=== PATIENT | male | born 1980 | race Caucasian/White ===

== ENCOUNTER 2019-10-12 07:33 | Emergency (ER) | payer OTHER ==
[~2019-10-12] VITALS: Ht 180.3 cm; Wt 134.1 kg
[2019-10-12] MEDS ORDERED: AMLO10TA7 PO (07:39)
[2019-10-12] MEDS: HYDROmorphone 2 MG/ML SYRINGE IVP ONE ×2 (09:17→12:02)
[2019-10-12] MEDS: KETOROLAC TROMETHAMINE 30 MG/ML VIAL IVP ONE (09:17)
[2019-10-12] MEDS: ONDANSETRON HCL 4 MG/2 ML VIAL IVP ONE (09:17)
[2019-10-12 09:30] LABS: BASOPHILS % (AUTO) 0.6 % (0.0-2.0); EOSINOPHILS % (AUTO) 0.6 % (1.0-6.0); HEMATOCRIT 44.7 % (41-53); HEMOGLOBIN 15.1 g/dL (13.5-17.5); LYMPHOCYTES # (AUTO) 1.4 K/uL (1.0-4.8); LYMPHOCYTES % (AUTO) 10.8 % (22.0-44.0); MEAN CORPUSCULAR HEMOGLOBIN 29.4 pg (26.0-34.0); MEAN CORPUSCULAR HGB CONC 33.7 G/dL (31.0-37.0); MEAN CORPUSCULAR VOLUME 87 fL (80-100); MONOCYTES # (AUTO) 0.7 K/uL (0.1-1.0); MONOCYTES % (AUTO) 5.3 % (2.0-9.0); NEUTROPHILS # (AUTO) 10.6 K/uL (1.8-7.7); NEUTROPHILS % (AUTO) 82.7 % (40.0-70.0); PLATELET COUNT (AUTO) 246 K/uL (150-450); RED BLOOD CELL COUNT(AUTO) 5.11 MIL/uL (4.50-5.90); RED CELL DISTRIBUTION WIDTH 16.7 % (11.5-14.5)
[2019-10-12 09:41] LABS: ANION GAP 10 mmol/L (8-16); CALCIUM, TOTAL 9.1 mg/dL (8.8-10.5); CARBON DIOXIDE 26 mmol/L (22-29); CHLORIDE 100 mmol/L (98-107); CREATININE 0.81 mg/dL (0.60-1.30); GLOMERULAR FILTR. RATE CALC > 60 mL/min (>60); GLUCOSE,RANDOM 108 mg/dL (70-110); POTASSIUM 4.1 mmol/L (3.5-5.1); SODIUM SERUM 136 mmol/L (136-145); UREA NITROGEN, BLOOD 16 mg/dL (7-18)
[2019-10-12 09:46] LABS: APPEARANCE,URINE CLEAR (CLEAR); BILIRUBIN,URINE NEGATIVE (NEGATIVE); GLUCOSE, URINE (UA) NEGATIVE (NEGATIVE); KETONES,URINE NEGATIVE (NEGATIVE); LEUKOCYTE ESTERASE ,URINE NEGATIVE (NEGATIVE); NITRATE,URINE NEGATIVE (NEGATIVE); OCCULT BLOOD,URINE SMALL (NEGATIVE); PH,URINE 6.5 (5.0-8.0); PROTEIN,URINE NEGATIVE (NEGATIVE); UROBILINOGEN,URINE 0.2 mg/dL (<=1.0)
[2019-10-12 09:57] LABS: BACTERIA,URINE None Seen /HPF (None Seen); WBC,URINE None Seen /HPF (0-5)
[2019-10-12 09:58] LABS: ALANINE AMINOTRANSFERASE 65 U/L (12-78); ALKALINE PHOSPHATASE 131 U/L (46-116); ASPARTATE AMINOTRANSFERASE 33 U/L (15-37); BILIRUBIN,TOTAL 0.5 mg/dL (0.1-1.0); LIPASE 139 U/L (73-393); TOTAL PROTEIN, SERUM 7.8 g/dL (6.4-8.2)
[2019-10-12] MEDS: AmLODIPine BESYLATE 5 MG TABLET PO ONE (13:00)
[2019-10-12 13:02] VITALS: BP 128/56
== END 2019-10-12 13:42 | disposition home or self-care (01) ==
LOC: EMS 07:39
DX: N20.0 Calculus of kidney (principal); I10 Essential (primary) hypertension
CPT/HCPCS: 36415; 71045; 74176; 80053; 81001; 83690; 84484; 85025; 93005; 96374; 96375; 96376; 99284; J1170; J1885; J2405

== ENCOUNTER 2019-10-21 04:45 | Emergency (ER) | payer OTHER ==
[~2019-10-21] VITALS: Ht 180.3 cm; Wt 134.1 kg
[~2019-10-21 04:45] MED LIST: AMLO10TA7 PO
[2019-10-21] MEDS ORDERED: AMLO2.5T4 PO (05:00)
[2019-10-21] MEDS ORDERED: HYDR-4061 PO (05:00)
[2019-10-21] MEDS ORDERED: PARO20TA24 PO (05:00)
[2019-10-21] MEDS ORDERED: IBUP-2310 PO (05:00)
[2019-10-21] MEDS ORDERED: ONDA-104 PO (05:00)
[2019-10-21] MEDS ORDERED: OMEP20 PO (05:00)
[2019-10-21] MEDS ORDERED: SODIUM CHLORIDE 0.9% 1,000 ML IV ONE (06:30)
[2019-10-21] MEDS ORDERED: KETOROLAC TROMETHAMINE 30 MG/ML VIAL IVP ONE (06:30)
[2019-10-21] MEDS ORDERED: ONDANSETRON HCL 4 MG/2 ML VIAL IVP ONE (06:30)
[2019-10-21 06:41] LABS: BASOPHILS % (AUTO) 0.7 % (0.0-2.0); EOSINOPHILS % (AUTO) 2.8 % (1.0-6.0); HEMATOCRIT 42.6 % (41-53); HEMOGLOBIN 14.7 g/dL (13.5-17.5); LYMPHOCYTES # (AUTO) 1.9 K/uL (1.0-4.8); LYMPHOCYTES % (AUTO) 16.4 % (22.0-44.0); MEAN CORPUSCULAR HGB CONC 34.4 G/dL (31.0-37.0); MEAN CORPUSCULAR VOLUME 87 fL (80-100); MONOCYTES # (AUTO) 0.9 K/uL (0.1-1.0); MONOCYTES % (AUTO) 7.6 % (2.0-9.0); NEUTROPHILS # (AUTO) 8.6 K/uL (1.8-7.7); NEUTROPHILS % (AUTO) 72.5 % (40.0-70.0); PLATELET COUNT (AUTO) 229 K/uL (150-450); RED BLOOD CELL COUNT(AUTO) 4.88 MIL/uL (4.50-5.90)
[2019-10-21 06:54] LABS: APPEARANCE,URINE CLEAR (CLEAR); BILIRUBIN,URINE NEGATIVE (NEGATIVE); GLUCOSE, URINE (UA) NEGATIVE (NEGATIVE); KETONES,URINE NEGATIVE (NEGATIVE); LEUKOCYTE ESTERASE ,URINE NEGATIVE (NEGATIVE); NITRATE,URINE NEGATIVE (NEGATIVE); OCCULT BLOOD,URINE NEGATIVE (NEGATIVE)
[2019-10-21 06:56] LABS: PROTEIN,URINE NEGATIVE (NEGATIVE)
[2019-10-21 06:57] LABS: BACTERIA,URINE None Seen /HPF (None Seen); RBC,URINE None Seen /HPF (0-2); WBC,URINE None Seen /HPF (0-5)
[2019-10-21] MEDS ORDERED: OxyCODONE HCL/ACETAMINOPHEN 10-325 MG TABLET PO ONE (08:00)
[2019-10-21 08:40] VITALS: BP 142/76
== END 2019-10-21 08:44 | disposition home or self-care (01) ==
LOC: EMS 04:45
DX: M54.6 Pain in thoracic spine (principal); I10 Essential (primary) hypertension; F12.90 Cannabis use, unspecified, uncomplicated; Z98.890 Other specified postprocedural states; Z79.899 Other long term (current) drug therapy
CPT/HCPCS: 36415; 71046; 81001; 85025; 96374; 96375; 99284; J1885; J2405; J7030

== ENCOUNTER 2022-07-08 10:20 | Emergency (ER) | payer OTHER ==
[~2022-07-08] VITALS: Ht 180.3 cm; Wt 143.2 kg
[~2022-07-08 10:20] MED LIST changes: -AMLO10TA7 PO; +AMLO2.5T96 PO; +HYDR-4061 PO; +IBUP-2310 PO; +OMEP20 PO; +ONDA-104 PO; +PARO-38 PO
[2022-07-08 13:57] VITALS: BP 136/72
== END 2022-07-08 14:50 | disposition home or self-care (01) ==
LOC: EMS 10:25
DX: S92.515A Nondisplaced fracture of proximal phalanx of left lesser toe(s), initial encounter for closed fracture (principal); I10 Essential (primary) hypertension; F12.90 Cannabis use, unspecified, uncomplicated; W10.8XXA Fall (on) (from) other stairs and steps, initial encounter; Y93.89 Activity, other specified; Y92.89 Other specified places as the place of occurrence of the external cause; Y99.8 Other external cause status
CPT/HCPCS: 99284

== ENCOUNTER 2023-12-17 21:52 | Emergency (ER) | payer OTHER ==
[~2023-12-17] VITALS: Ht 180.3 cm; Wt 143.0 kg
[~2023-12-17 21:52] MED LIST changes: -HYDR-4061 PO; -IBUP-2310 PO; -ONDA-104 PO
[2023-12-17 22:13] VITALS: BP 128/67; PULSE 72; RESP 18; TEMP 98.1
[2023-12-17] MEDS: ONDANSETRON HCL 4 MG/2 ML VIAL IVP ONE (22:49)
[2023-12-17] MEDS: KETOROLAC TROMETHAMINE 30 MG/ML VIAL IVP ONE (22:49)
[2023-12-17] MEDS: HYDROmorphone HCL 2 MG/ML SYRINGE IVP ONE (22:51)
[2023-12-17] MEDS: DEXAMETHASONE SOD PHOS 4 MG/ML 5 ML VIAL IVP ONE (23:10)
[2023-12-18] MEDS ORDERED: IBUP-1492 PO (01:34)
[2023-12-18] MEDS ORDERED: METH4TAB3 PO (01:34)
[2023-12-18] MEDS ORDERED: OXYC-38 PO (01:34)
[2023-12-18] MEDS: HYDROmorphone HCL 2 MG/ML SYRINGE IVP ONE (01:44)
== END 2023-12-18 04:00 | disposition home or self-care (01) ==
LOC: EMS 21:53
DX: M54.50 Low back pain, unspecified (principal); F41.9 Anxiety disorder, unspecified; I10 Essential (primary) hypertension; F12.90 Cannabis use, unspecified, uncomplicated; Z90.49 Acquired absence of other specified parts of digestive tract; Z98.890 Other specified postprocedural states
CPT/HCPCS: 99284; 96374; 96375; 72100; 96376; J1100; J1170 ×2; J1885; J2405

== ENCOUNTER 2023-12-21 19:27 | Inpatient (IN) | payer OTHER ==
[~2023-12-21] VITALS: Ht 180.3 cm; Wt 149.7 kg
[~2023-12-21 19:27] MED LIST changes: +IBUP-1492 PO; +METH4TAB3 PO; +OXYC-38 PO
[2023-12-21] MEDS: HYDROmorphone HCL 2 MG/ML SYRINGE IVP ONE ×2 (21:00→22:52)
[2023-12-21 21:44] LABS: APPEARANCE,URINE CLEAR (CLEAR); BILIRUBIN,URINE NEGATIVE (NEGATIVE); COLOR,URINE YELLOW (YELLOW); GLUCOSE, URINE (UA) NEGATIVE (NEGATIVE); KETONES,URINE NEGATIVE (NEGATIVE); LEUKOCYTE ESTERASE ,URINE NEGATIVE (NEGATIVE); NITRATE,URINE NEGATIVE (NEGATIVE); OCCULT BLOOD,URINE NEGATIVE (NEGATIVE); PROTEIN,URINE TRACE mg/dL (NEGATIVE); SPECIFIC GRAVITIY, URINE 1.023 (1.003-1.030); UROBILINOGEN,URINE <=1.0 mg/dL (<=1.0)
[2023-12-21 21:49] LABS: BACTERIA,URINE None Seen /HPF (None Seen); RBC,URINE None Seen /HPF (0-2); SQUAMOUS EPITHELIAL CELL,UR Few /LPF (None Seen); WBC,URINE None Seen /HPF (0-5)
[2023-12-21 22:29] LABS: BASOPHILS % (AUTO) 0.2 % (0.0-2.0); EOSINOPHILS % (AUTO) 0.4 % (1.0-6.0); HEMATOCRIT 34.4 % (41-53); HEMOGLOBIN 11.3 g/dL (13.5-17.5); LYMPHOCYTES # (AUTO) 1.5 K/uL (1.0-4.8); LYMPHOCYTES % (AUTO) 8.4 % (22.0-44.0); MEAN CORPUSCULAR HEMOGLOBIN 28.7 pg (26.0-34.0); MEAN CORPUSCULAR HGB CONC 32.8 G/dL (31.0-37.0); MEAN CORPUSCULAR VOLUME 88 fL (80-100); MONOCYTES # (AUTO) 0.9 K/uL (0.1-1.0); MONOCYTES % (AUTO) 5.3 % (2.0-9.0); NEUTROPHILS # (AUTO) 14.9 K/uL (1.8-7.7); PLATELET COUNT (AUTO) 294 K/uL (150-450); RED BLOOD CELL COUNT(AUTO) 3.93 MIL/uL (4.50-5.90); RED CELL DISTRIBUTION WIDTH 16.5 % (11.5-14.5); WHITE BLOOD COUNT (AUTO) 17.4 K/uL (4.5-11.0)
[2023-12-21 22:35] LABS: NEUTROPHILS % (AUTO) 85.7 % (40.0-70.0)
[2023-12-21 22:40] LABS: ANION GAP 7 mmol/L (8-16); CALCIUM, TOTAL 9.3 mg/dL (8.8-10.5); CARBON DIOXIDE 28 mmol/L (22-29); CHLORIDE 98 mmol/L (98-107); CREATININE 0.79 mg/dL (0.60-1.30); GLOMERULAR FILTR. RATE CALC > 60 mL/min (>60); GLUCOSE,RANDOM 125 mg/dL (70-110); SODIUM SERUM 133 mmol/L (136-145); UREA NITROGEN, BLOOD 20 mg/dL (7-18)
[2023-12-21 22:46] LABS: ALANINE AMINOTRANSFERASE 80 U/L (12-78); ALBUMIN 3.5 g/dL (3.4-5.0); ALKALINE PHOSPHATASE 125 U/L (46-116); ASPARTATE AMINOTRANSFERASE 35 U/L (15-37); BILIRUBIN,TOTAL 0.8 mg/dL (0.1-1.0); TOTAL PROTEIN, SERUM 7.7 g/dL (6.4-8.2)
[2023-12-21] MEDS ORDERED: ONDANSETRON HCL 4 MG/2 ML VIAL IVP PRN (23:00)
[2023-12-21] MEDS ORDERED: NALOXONE HCL 1 MG/ML 2 ML SYRINGE IVP PRN (23:00)
[2023-12-21 23:47] VITALS: BP 158/98; PULSE 67; RESP 20; TEMP 97.7
[2023-12-21] MEDS: HYDROCODONE/ACETAMINOPHEN 5-325 MG TABLET PO PRN (23:48)
[2023-12-22] VITALS (8 sets, daily range): BP systolic 124–152; BP diastolic 59–90; PULSE 66–76; RESP 18–20; TEMP 97.6–98.1
[2023-12-22] MEDS: HYDROmorphone HCL 2 MG/ML SYRINGE IVP ONE (00:45)
[2023-12-22] MEDS ORDERED: SODIUM CHLORIDE 0.9% 500 ML IV ONE (01:05)
[2023-12-22] MEDS: CefTRIAXone 1 GM/DEXTROSE 50 ML IV SCH (01:11)
[2023-12-22] MEDS: AZITHROMYCIN 500 MG/NS 250 ML IV SCH (02:29)
[2023-12-22] MEDS: IBUPROFEN 600 MG TABLET PO PRN (02:42)
[2023-12-22] MEDS: MELATONIN 3 MG TABLET PO ONE (03:01)
[2023-12-22] MEDS: HYDROmorphone HCL 2 MG/ML SYRINGE IVP PRN ×2 (05:46→20:54)
[2023-12-22 08:24] LABS: COVID AG,FIA SOURCE NASAL SWAB
[2023-12-22] MEDS: GABAPENTIN 100 MG CAPSULE PO SCH (08:52)
[2023-12-22] MEDS: DOCUSATE SODIUM 100 MG CAPSULE PO SCH (08:52)
[2023-12-22] MEDS: OMEPRAZOLE 20 MG CAPSULE PO SCH (08:52)
[2023-12-22 09:00] LABS: SARS-COV2 (COVID) ANTIGEN,FIA Negative (Negative)
[2023-12-22] MEDS ORDERED: GABAPENTIN 100 MG CAPSULE PO SCH (09:00)
[2023-12-22] MEDS: DEXAMETHASONE 4 MG TABLET PO SCH (10:11)
[2023-12-22] MEDS: AmLODIPine BESYLATE 2.5 MG TABLET PO SCH (10:11)
[2023-12-22] MEDS: PARoxetine HCL 20 MG TABLET PO SCH (10:11)
[2023-12-22] MEDS: INFLUENZA VIRUS VACCINE QVS 2023-24 (6MO+)/PF 60 MCG/0.5 ML SYRINGE IM. ONE (10:13)
[2023-12-22] MEDS ORDERED: OxyCODONE HCL/ACETAMINOPHEN 10-325 MG TABLET PO PRN (14:15)
[2023-12-22] MEDS: OxyCODONE HCL/ACETAMINOPHEN 10-325 MG TABLET PO PRN (16:55)
[2023-12-23] VITALS (7 sets, daily range): BP systolic 140–160; BP diastolic 84–144; PULSE 56–72; RESP 18–20; TEMP 97.8–98
[2023-12-23] MEDS: HEPARIN SODIUM,PORCINE 5,000 UNITS/ML VIAL SQ SCH (00:24)
[2023-12-23] MEDS: ACETAMINOPHEN 325 MG TABLET PO PRN (09:36)
[2023-12-24] VITALS: BP 147/88; PULSE 59; RESP 18; TEMP 98
[2023-12-24 04:00] VITALS: BP 150/93; PULSE 54; RESP 18; TEMP 97.6
[2023-12-24 10:24] VITALS: BP 152/95; PULSE 54; RESP 20; TEMP 97.6
[2023-12-24 11:29] VITALS: BP 172/84; PULSE 60; RESP 20; TEMP 97.5
[2023-12-24 14:42] VITALS: BP 155/80; PULSE 64; RESP 20; TEMP 97.4
[2023-12-24 19:56] VITALS: BP 169/94; PULSE 63; RESP 20; TEMP 97.8
[2023-12-25 00:13] VITALS: BP 158/92; PULSE 55; RESP 20; TEMP 97.7
[2023-12-25 06:37] VITALS: BP 151/79; PULSE 57; RESP 18; TEMP 97.4
[2023-12-25 07:26] VITALS: BP 136/80; PULSE 47; RESP 18; TEMP 98
[2023-12-25 12:01] VITALS: BP 148/95; PULSE 58; RESP 18; TEMP 98
[2023-12-26] MEDS ORDERED: DOCU-385 PO (14:02)
[2023-12-26] MEDS ORDERED: DEXA4 PO (14:02)
[2023-12-26] MEDS ORDERED: AZIT250T9 PO (14:02)
[2023-12-26] MEDS ORDERED: OXYC-490 PO (14:02)
[2023-12-26] MEDS ORDERED: GABA-1181 PO (14:02)
[2023-12-26] MEDS ORDERED: IBUP-1554 PO (14:03)
[2023-12-26] MEDS ORDERED: NALO4SPR NASAL (15:04)
== END 2023-12-25 17:30 | DRG 347 ==
LOC: EMS 19:27 → 6N 23:00 → EMS 23:18 → 5S 12-22 03:01
PROVIDERS: ADMIT Internal Medicine; ATTEND Internal Medicine
DX: S32.011A Stable burst fracture of first lumbar vertebra, initial encounter for closed fracture (principal); E22.2 Syndrome of inappropriate secretion of antidiuretic hormone; J18.9 Pneumonia, unspecified organism; E66.01 Morbid (severe) obesity due to excess calories; I10 Essential (primary) hypertension; Z20.822 Contact with and (suspected) exposure to COVID-19; T38.0X5A Adverse effect of glucocorticoids and synthetic analogues, initial encounter; D72.829 Elevated white blood cell count, unspecified; R74.8 Abnormal levels of other serum enzymes; F41.9 Anxiety disorder, unspecified; Z68.41 Body mass index [BMI] 40.0-44.9, adult; Z82.49 Family history of ischemic heart disease and other diseases of the circulatory system
CPT/HCPCS: 72131; 80053; 81001; 85025; 97116; 97162; 97530; 97535; 99285; J0456; J0696; J1170; J1644; J7040; J8540

== ENCOUNTER 2023-12-25 23:12 | Emergency (ER) | payer OTHER ==
[~2023-12-25] VITALS: Ht 180.3 cm; Wt 143.0 kg
[2023-12-26] VITALS: TEMP 98.3
[2023-12-26] MEDS: KETOROLAC TROMETHAMINE 30 MG/ML VIAL IM ONE (01:10)
[2023-12-26] MEDS: OxyCODONE HCL 5 MG IR TABLET PO ONE (01:10)
[2023-12-26 07:40] LABS: BASOPHILS % (AUTO) 0.5 % (0.0-2.0); EOSINOPHILS % (AUTO) 0.5 % (1.0-6.0); HEMOGLOBIN 10.8 g/dL (13.5-17.5); LYMPHOCYTES # (AUTO) 2.6 K/uL (1.0-4.8); MEAN CORPUSCULAR HGB CONC 32.7 G/dL (31.0-37.0); MEAN CORPUSCULAR VOLUME 89 fL (80-100); MONOCYTES # (AUTO) 0.8 K/uL (0.1-1.0); MONOCYTES % (AUTO) 6.1 % (2.0-9.0); NEUTROPHILS # (AUTO) 9.9 K/uL (1.8-7.7); NEUTROPHILS % (AUTO) 73.9 % (40.0-70.0); PLATELET COUNT (AUTO) 271 K/uL (150-450); RED BLOOD CELL COUNT(AUTO) 3.73 MIL/uL (4.50-5.90); RED CELL DISTRIBUTION WIDTH 16.5 % (11.5-14.5); WHITE BLOOD COUNT (AUTO) 13.4 K/uL (4.5-11.0)
[2023-12-26 07:48] LABS: ANION GAP 5 mmol/L (8-16); CALCIUM, TOTAL 8.7 mg/dL (8.8-10.5); CARBON DIOXIDE 30 mmol/L (22-29); CHLORIDE 101 mmol/L (98-107); CREATININE 0.86 mg/dL (0.60-1.30); GLOMERULAR FILTR. RATE CALC > 60 mL/min (>60); GLUCOSE,RANDOM 99 mg/dL (70-110); POTASSIUM 4.1 mmol/L (3.5-5.1); SODIUM SERUM 136 mmol/L (136-145); UREA NITROGEN, BLOOD 26 mg/dL (7-18)
[2023-12-26] MEDS: DOCUSATE SODIUM 100 MG CAPSULE PO ONE (07:49)
[2023-12-26] MEDS: HEPARIN SODIUM,PORCINE 5,000 UNITS/ML VIAL SQ ONE (07:49)
[2023-12-26] MEDS: AmLODIPine BESYLATE 5 MG TABLET PO ONE (07:49)
[2023-12-26] MEDS: GABAPENTIN 300 MG CAPSULE PO ONE (07:49)
[2023-12-26] MEDS: OxyCODONE HCL/ACETAMINOPHEN 10-325 MG TABLET PO PRN (07:50)
[2023-12-26] MEDS: DEXAMETHASONE 4 MG TABLET PO ONE (07:50)
[2023-12-26] MEDS: OMEPRAZOLE 20 MG CAPSULE PO ONE (07:53)
[2023-12-26 07:54] LABS: ALANINE AMINOTRANSFERASE 93 U/L (12-78); ALBUMIN 3.2 g/dL (3.4-5.0); ALKALINE PHOSPHATASE 114 U/L (46-116); ASPARTATE AMINOTRANSFERASE 29 U/L (15-37); BILIRUBIN,TOTAL 0.4 mg/dL (0.1-1.0); LIPASE 66 U/L (16-77)
[2023-12-26 07:56] LABS: TROPONIN I-HIGH SENSITIVITY 5 ng/L (<76)
[2023-12-26] MEDS: PARoxetine HCL 20 MG TABLET PO ONE (07:59)
[2023-12-26 08:32] LABS: LACTIC ACID 1.4 mmol/L (0.4-2.0)
[2023-12-26] MEDS ORDERED: DEXA4 PO (14:02)
[2023-12-26] MEDS ORDERED: OXYC-490 PO (14:02)
[2023-12-26] MEDS ORDERED: DOCU-385 PO (14:02)
[2023-12-26] MEDS ORDERED: GABA-1181 PO (14:02)
[2023-12-26] MEDS ORDERED: AZIT250T9 PO (14:02)
[2023-12-26] MEDS ORDERED: IBUP-1554 PO (14:03)
[2023-12-26] MEDS: OxyCODONE HCL/ACETAMINOPHEN 10-325 MG TABLET PO ONE (14:49)
[2023-12-26 14:50] VITALS: BP 125/72; PULSE 72; RESP 15
[2023-12-26] MEDS ORDERED: NALO4SPR NASAL (15:04)
[2024-01-03] MEDS ORDERED: OXYC-38 PO (03:42)
== END 2023-12-26 15:09 | disposition home or self-care (01) ==
LOC: EMS 23:13
DX: M48.56XA Collapsed vertebra, not elsewhere classified, lumbar region, initial encounter for fracture (principal); F41.9 Anxiety disorder, unspecified; I10 Essential (primary) hypertension; F12.90 Cannabis use, unspecified, uncomplicated; Z90.49 Acquired absence of other specified parts of digestive tract; Z98.890 Other specified postprocedural states
CPT/HCPCS: 99285; 80053; 83605; 83690; 84484; 85025; 36415; 96372; J8540; J1885; J1644

== ENCOUNTER 2024-01-05 15:24 | Emergency (ER) | payer OTHER ==
[~2024-01-05] VITALS: Ht 180.3 cm; Wt 143.2 kg
[~2024-01-05 15:24] MED LIST changes: +AZIT250T9 PO; +DEXA4 PO; +DOCU-385 PO; +GABA-1181 PO; -IBUP-1492 PO; +IBUP-1554 PO; -METH4TAB3 PO; +NALO4SPR NASAL; +OXYC-490 PO
[2024-01-05 15:53] VITALS: TEMP 97.8
[2024-01-05] MEDS ORDERED: LIDO1ADH83 TP (18:23)
[2024-01-05] MEDS ORDERED: GABA-1181 PO (18:23)
[2024-01-05] MEDS ORDERED: PERCT PO (18:23)
[2024-01-05] MEDS ORDERED: METH-659 PO (18:23)
[2024-01-05] MEDS: IBUPROFEN 600 MG TABLET PO ONE (18:50)
[2024-01-05] MEDS: METHOCARBAMOL 500 MG TABLET PO ONE (18:50)
[2024-01-05] MEDS: OxyCODONE HCL/ACETAMINOPHEN 5-325 MG TABLET PO ONE (18:50)
[2024-01-05] MEDS: GABAPENTIN 100 MG CAPSULE PO ONE (18:50)
[2024-01-05 18:56] VITALS: BP 138/74; PULSE 74; RESP 18
== END 2024-01-05 18:58 | disposition home or self-care (01) ==
LOC: EMS 15:24
DX: S32.019A Unspecified fracture of first lumbar vertebra, initial encounter for closed fracture (principal); F41.9 Anxiety disorder, unspecified; I10 Essential (primary) hypertension; F12.90 Cannabis use, unspecified, uncomplicated; Z90.49 Acquired absence of other specified parts of digestive tract; X58.XXXA Exposure to other specified factors, initial encounter; Y93.89 Activity, other specified; Y92.89 Other specified places as the place of occurrence of the external cause; Y99.8 Other external cause status
CPT/HCPCS: 99284; Z7502; Z7610

== ENCOUNTER 2025-09-27 06:07 | Day surgery (SDC) | payer OTHER ==
[~2025-09-27] VITALS: Ht 180.3 cm; Wt 127.3 kg
[~2025-09-27 06:07] MED LIST changes: -AZIT250T9 PO; -DEXA4 PO; +LIDO1ADH83 TP; +METH-659 PO; +OMEP-148 PO; -OMEP20 PO; -OXYC-490 PO; +PERCT PO
[2025-09-27] MEDS ORDERED: SODIUM CHLORIDE 0.9% 1,000 ML ONE (07:13)
[2025-09-27] MEDS: SODIUM CHLORIDE 0.9% 1,000 ML IV ONE (07:41)
[2025-09-27] MEDS ORDERED: FentaNYL CITRATE PF 100 MCG/2 ML VIAL ONE (08:10)
[2025-09-27] MEDS ORDERED: MIDAZOLAM HCL 2 MG/2 ML VIAL ONE (08:10)
[2025-09-27 09:36] VITALS: PULSE 75; RESP 18; O2SAT 100
[2025-09-27] MEDS ORDERED: SERT-162 PO (10:18)
[2025-09-27] MEDS ORDERED: FOLI-130 PO (10:18)
[2025-09-27] MEDS ORDERED: CYCL-448 PO (10:18)
[2025-09-27] MEDS ORDERED: FERR325T27 PO (10:18)
[2025-09-27] MEDS ORDERED: HYDR10TA31 PO (10:18)
[2025-09-27] MEDS ORDERED: MONT-35 PO (10:18)
[2025-09-27] MEDS ORDERED: LISI-893 PO (10:18)
[2025-09-27] MEDS ORDERED: DOXY75TA14 PO (10:18)
[2025-09-27] MEDS ORDERED: BENZOCAINE 20% 50 MCG/SPRAY 57 GM ONE (12:00)
[2025-09-27] MEDS ORDERED: LIDOCAINE 4% 50 ML SOLUTION ONE (12:00)
[2025-09-27] MEDS ORDERED: LIDOCAINE 2% 11 ML JELLY ONE (12:00)
[2025-09-27] MEDS ORDERED: ALBUTEROL SULFATE 2.5 MG/0.5 ML NEB SOLUTION NEB ONE (12:00)
== END 2025-09-27 13:45 | disposition home or self-care (01) ==
LOC: SURGERY 06:07
PROVIDERS: ATTEND Internal Medicine Critical Care Medicine
DX: J38.4 Edema of larynx (principal); B37.0 Candidal stomatitis; R05.3 Chronic cough; R06.2 Wheezing; R04.2 Hemoptysis; F41.9 Anxiety disorder, unspecified; F32.A Depression, unspecified; G47.30 Sleep apnea, unspecified; I10 Essential (primary) hypertension; M19.90 Unspecified osteoarthritis, unspecified site; Z90.49 Acquired absence of other specified parts of digestive tract; Z87.442 Personal history of urinary calculi; Z98.890 Other specified postprocedural states; Z87.891 Personal history of nicotine dependence; Z82.0 Family history of epilepsy and other diseases of the nervous system
CPT/HCPCS: 31623; 87206; 87101; 87220; 87070; 88108; 31624; 71045; 87015; J3010; J2250; J2919; J7030; J7613; Z7610